=== PATIENT | female | born 1990 | race Caucasian/White ===

== ENCOUNTER 2017-08-10 05:03 | Inpatient (IN) | payer BC ==
[2017-08-10] MEDS ORDERED: OXYTOCIN 20 UNITS in RINGER'S SOLUTION,LACTATED 1,000 ML IV ONE (05:33)
[2017-08-10] MEDS ORDERED: RINGER'S SOLUTION,LACTATED 1,000 ML IV PRN ×2 (05:33)
[2017-08-10] MEDS ORDERED: ceFAZolin SODIUM/DEXTROSE,ISO 2 GM/50 ML BAG IV ONE (05:33)
[2017-08-10 05:57] LABS: Hematocrit 31.8 % (37.0-47.0); Mean Cell Volume 79.5 fl (78-100); Mean Corpuscular Hgb Conc 31.4 g/dl (32-36); Mean Platelet Volume 10.4 fl (6.0-9.5); Neutrophil # 4.9 K/mm3 (1.3-6.0); Neutrophil % 64.1 % (42-75.0); Platelet Count 204 K/mm3 (150-450); Red Cell Distribution Width 16.2 % (11.5-14.0); White Blood Count 7.6 K/mm3 (4.0-10.5)
[2017-08-10] MEDS ORDERED: RINGER'S SOLUTION,LACTATED 1,000 ML IV ONE (07:50)
[2017-08-10] MEDS ORDERED: BISACODYL 10 MG SUPP.RECT RC PRN (09:27)
[2017-08-10] MEDS ORDERED: SENNOSIDES 8.6 MG TABLET PO PRN (09:27)
[2017-08-10] MEDS ORDERED: oxyCODONE HCL/ACETAMINOPHEN 1 TAB TABLET PO PRN (09:27)
[2017-08-10] MEDS ORDERED: SIMETHICONE 80 MG TAB.CHEW PO PRN (09:27)
--- NOTE | 2017-08-10 09:33 | OR ---
Operative Report - Dictated Report Narrative: Indication: 27-year-old 2 para 1 at 39 weeks gestation age with prior section desires repeat low transverse section status: Planned Pre Operative Diagnosis: 39 week intrauterine , insulin-dependent gestational diabetic, prior section Post Operative Diagnosis: Same. Procedure: Repeat low transverse section. Surgeon: Mayo Shah DO Sales Operations Coordinator: OR Staff Anesthesia: Spinal, TAP block Estimated Blood Loss: 300 mL Urine Output: 400 mL clear urine Fluids Replacement: 1100 mL Drains: Bailey to gravity Surgical Complications: None Specimens: Placenta to freezer Findings: Male in cephalic presentation born at 0827 on 08/10/2016 with Apgars 7 and 9, weighing 3681 g with nuchal cord 3. Normal uterus, tubes, ovaries Technique: The patient was taken to the operating room and placed in dorsal supine position with a left lateral tilt. After adequate spinal anesthesia, bailey catheter inserted, SCDs placed, and 2 g of Ancef given preoperatively, the abdominal cavity was entered using sharp and blunt dissection. Two rolled laps were placed in the pericolic gutters on either side of the uterus. Bladder flap was created and retracted with bladder blade. A transverse incision was made in the lower uterine segment and extended laterally and upwardly with digital traction. Clear fluid was noted upon amniotomy. Nuchal cord was reduced 3. Difficulty was encountered in delivering the head, therefore vacuum was applied to the vertex, pumped to 500 mmHg, and used to guide the head through the hysterotomy. The infant was warmed and dried and cord clamping was delayed approximately 1 minute. The cord was clamped and cut and was handed off to awaiting child development teacher. The placenta was allowed to deliver spontaneously. The uterus was cleared of clot and debris. Uterine incision was closed with 0 Vicryl using a running stitch. A second imbricating layer was placed. Excellent hemostasis was noted. The rolled laps were removed from the abdominal cavitiy. The peritoneum was closed with a running 3- 0 Monocryl. The same suture was used to approximate the rectus and pyramidalis muscles. The fascia was closed with a running 0 Vicryl. The subcutaneous layer was closed with a running 3-0 Monocryl. The same suture was used to approximate the subdermal layer. The skin was closed with a running 4-0 Monocryl and Dermabond. Sponge, lap, needle, and instrument count were correct x 2. Disposition: To post anesthesia care unit in good condition
--- NOTE | 2017-08-10 09:46 | OR ---
Anesthesia Procedure Note - Anesthesia Procedure Note Narrative: Vital Signs - Last Taken Temp 36.1 C L 08/10/17 09:15 Pulse 78 08/10/17 09:30 Resp 18 08/10/17 09:30 BP 114/57 08/10/17 09:30 Pulse Ox 99 08/10/17 09:30 O2 Oxygen Delivery Method Room Air 08/10/17 09:43 ANESTHESIA PROCEDURE NOTE Date of procedure: 08/10/2017. Time of procedure: 07 23. Performed by: Kenny El CRNA Fancy Needleworker: Agnieszka Zheng RN . Preprocedure diagnosis: Status post a C section. Desire for postoperative analgesia. Post procedure diagnosis: Same. Procedure: Bilateral ultrasound Guided tap block Indications: Postoperative analgesia. Findings: Patient placed in a supine position in the PACU. The right side of patient's abdomen was prepped with ChloraPrep. Ultrasound guidance was used to identify the fascial layer between the internal oblique and trans-abdominis muscle. A 22-gauge 2 inch Stimuplex regional block needle was inserted under ultrasound guidance. 20 mL of 0.25% Marcaine with epinephrine 1 at 200,000 was injected into the fascial layer. Adequate spread of local anesthetic was noted. Regional block needle was removed intact. Procedure was repeated on patient's left side. EBL: Minimal. Fluids: N/A. Specimen: N/A. Post procedure condition: The patient tolerated the procedure well. No complications were noted. Thank you for this consultation Kenny El CRNA
[2017-08-10] MEDS: oxyCODONE HCL/ACETAMINOPHEN 1 TAB TABLET PO PRN ×3 (10:22→20:56)
[2017-08-10] MEDS: IBUPROFEN 800 MG TABLET PO PRN ×2 (11:08→17:18)
[2017-08-10] MEDS ORDERED: HYDROmorphone HCL 1 MG/ML DISP.SYRIN IV ONE (11:12)
[2017-08-10] MEDS: ENOXAPARIN SODIUM 40 MG/0.4 ML SYRG SC SCH (16:56)
[2017-08-10] MEDS: ONDANSETRON HCL/PF 2 MG/ML VIAL IV PRN (16:57)
[2017-08-10] MEDS: FERROUS SULFATE 325 MG TABLET PO SCH (17:18)
[2017-08-10] MEDS: DOCUSATE SODIUM 100 MG CAPSULE PO SCH (20:56)
[2017-08-11] MEDS: oxyCODONE HCL/ACETAMINOPHEN 1 TAB TABLET PO PRN ×4 (03:36→20:25)
[2017-08-11] MEDS: IBUPROFEN 800 MG TABLET PO PRN ×4 (03:36→23:58)
[2017-08-11] MEDS: ONDANSETRON HCL/PF 2 MG/ML VIAL IV PRN (08:59)
[2017-08-11] MEDS: PRENATAL VITS96/IRON FUM/FOLIC 1 TAB TABLET PO SCH (10:01)
[2017-08-11] MEDS: DOCUSATE SODIUM 100 MG CAPSULE PO SCH ×2 (10:01→20:25)
--- NOTE | 2017-08-11 10:42 | PN ---
Subjective - Date and Time Seen Date: 08/11/17 Time: 10:42 Objective - Vitals Vitals: Last Vital Signs Temp 37.2 C 08/11/17 10:05 Pulse 86 08/11/17 10:05 Resp 14 08/11/17 10:05 BP 135/60 08/11/17 10:05 Pulse Ox 97 08/11/17 10:05 Patient denies complaints. Tolerating regular diet. Ambulating without difficulty. Pain well controlled. Lochia wnl. Abdomen - soft, appropriately tender Incision - clean, dry, intact Uterus - firm, at umbilicus -1 No calf tenderness Impression: Post op day #1 s/p repeat section. Plan: Continue routine post-operative/ care Cauti Physician Documentation - Urinary Catheter Management Urethral (Fernandez) Date of Insertion: 08/10/17 Time of Insertion: 08:10 Date of Removal: 08/10/17 Time of Removal: 21:00
[2017-08-11] MEDS: ENOXAPARIN SODIUM 40 MG/0.4 ML SYRG SC SCH (17:07)
[2017-08-11] MEDS: FERROUS SULFATE 325 MG TABLET PO SCH (17:07)
[2017-08-12] MEDS: oxyCODONE HCL/ACETAMINOPHEN 1 TAB TABLET PO PRN ×4 (05:54→21:57)
--- NOTE | 2017-08-12 08:47 | PN ---
Subjective - Date and Time Seen Date: 08/12/17 Time: 08:47 Objective - Vitals Vitals: Last Vital Signs Temp 37.1 C 08/12/17 03:35 Pulse 70 08/12/17 03:35 Resp 16 08/12/17 03:35 BP 107/55 08/12/17 03:35 Pulse Ox 98 08/12/17 03:35 Patient denies complaints. Ambulating well. Tolerating regular diet. Pain well controlled. Lochia wnl. Abdomen - soft, appropriately tender Incision - clean, dry, intact Uterus - firm, at umbilicus -2 No calf tenderness Impression: Post op day #2 s/p repeat section. Insulin-dependent gestational diabetic-resolved. Plan: Continue routine post-operative/ care Cauti Physician Documentation - Urinary Catheter Management Urethral (Fernandez) Date of Insertion: 08/10/17 Time of Insertion: 08:10 Date of Removal: 08/10/17 Time of Removal: 21:00
[2017-08-12] MEDS: DOCUSATE SODIUM 100 MG CAPSULE PO SCH ×2 (09:46→20:27)
[2017-08-12] MEDS: IBUPROFEN 800 MG TABLET PO PRN ×2 (09:47→21:58)
[2017-08-12] MEDS: PRENATAL VITS96/IRON FUM/FOLIC 1 TAB TABLET PO SCH (09:47)
[2017-08-12] MEDS: FERROUS SULFATE 325 MG TABLET PO SCH (17:53)
[2017-08-12] MEDS: ENOXAPARIN SODIUM 40 MG/0.4 ML SYRG SC SCH (17:53)
[2017-08-13 08:27] VITALS: BP 113/60
[2017-08-13] MEDS: DOCUSATE SODIUM 100 MG CAPSULE PO SCH (09:52)
[2017-08-13] MEDS: PRENATAL VITS96/IRON FUM/FOLIC 1 TAB TABLET PO SCH (09:52)
[2017-08-13] MEDS: IBUPROFEN 800 MG TABLET PO PRN (09:55)
--- NOTE | 2017-08-13 11:51 | PN ---
Subjective - Date and Time Seen Date: 08/13/17 Time: 11:51 Objective - Vitals Vitals: Last Vital Signs Temp 36.0 C L 08/13/17 08:26 Pulse 88 08/13/17 08:26 Resp 16 08/13/17 08:26 BP 113/60 08/13/17 08:26 Pulse Ox 99 08/13/17 08:26 Patient denies complaints. Ambulating without difficulty. Tolerating regular diet. Pain well controlled. Lochia wnl. Abdomen - soft, appropriately tender Incision - clean, dry, intact Uterus - firm, at umbilicus -3 No calf tenderness Impression: Post op day #3 s/p repeat section. Insulin dependent gestational diabetes-resolved Plan: Routine discharge instructions Cauti Physician Documentation - Urinary Catheter Management Urethral (Fernandez) Date of Insertion: 08/10/17 Time of Insertion: 08:10 Date of Removal: 08/10/17 Time of Removal: 21:00
== END 2017-08-13 13:40 | disposition home or self-care (01) | DRG 765 ==
LOC: OB 05:03
PROVIDERS: ADMIT Obstetrics & Gynecology; ATTEND Obstetrics & Gynecology
PROC: 4A1HXCZ Monitoring of Products of Conception, Cardiac Rate, External Approach (ICD-10-PCS; 2017-08-10)
PROC: 10D00Z1 Extraction of Products of Conception, Low, Open Approach (ICD-10-PCS; principal; 2017-08-10 08:00)
DX: O34.211 Maternal care for low transverse scar from previous cesarean delivery (principal); O98.32 Other infections with a predominantly sexual mode of transmission complicating childbirth; O24.424 Gestational diabetes mellitus in childbirth, insulin controlled; O69.81X0 Labor and delivery complicated by cord around neck, without compression, not applicable or unspecified; A60.04 Herpesviral vulvovaginitis; Z79.899 Other long term (current) drug therapy; Z3A.39 39 weeks gestation of pregnancy; Z37.0 Single live birth
CPT/HCPCS: 36415; 59025; 59510; 85025; J2405